=== PATIENT | male | born 1965 | race Caucasian/White ===

== ENCOUNTER 2016-06-21 08:03 | Emergency (ER) | payer BC ==
[~2016-06-21] VITALS: Ht 182.9 cm; Wt 84.1 kg
[2016-06-21] MEDS ORDERED: LEVAQUIN 5500 MG/TA1 PO (08:17)
[2016-06-21] MEDS ORDERED: MUCINEX 60600 MG/TA1 PO (08:19)
[2016-06-21] MEDS ORDERED: PREDNISONE20 MG PO (09:31)
[2016-06-21] MEDS ORDERED: VALTREX1 GM PO (09:31)
[2016-06-21 09:49] VITALS: BP 140/92; PULSE 73; TEMP 98.2
== END 2016-06-21 09:47 | disposition home or self-care (01) ==
LOC: COL.ER 08:03
DX: G51.0 Bell's palsy (principal); J32.9 Chronic sinusitis, unspecified; R51 Headache
CPT/HCPCS: J7512